=== PATIENT | female | born 1945 | race Caucasian/White ===

== ENCOUNTER → 2018-05-22 14:36 | Outpatient (CLI) | payer MEDICARE, OTHER, SELFPAY ==
[2018-05-22 16:11] LABS: Vitamin D,25 Hydroxy 57.6 ng/mL (29.95-100.01)
[2018-05-22 16:12] LABS: AST(SGOT) 44 U/L (15-37); Alanine Aminotransfer ALT/SGPT 37 U/L (13-56); Alkaline Phosphatase 98 U/L (45-117); Anion Gap 8 (5-15); BUN 16 mg/dL (7-18); BUN/Creat Ratio 19.1 RATIO (10-20); Calcium,Total 8.7 mg/dL (8.5-10.1); Chloride 105 mmol/L (98-107); Cholesterol 122 mg/dL (200); Creatinine, Serum 0.84 mg/dL (0.55-1.02); EST Glomerular Filtration Rate 71 mL/min (>60); Est Glom Filt Rate - Afr Amer 86 mL/min (>60); Globulin 4.2 g/dL (2.2-4.2); Glucose 99 mg/dL (74-106); High Density Lipoprotein 51 mg/dL; Protein, Total 8.2 g/dL (6.4-8.2); Sodium Level 137 mmol/L (136-145); Thyroid Stim Hormone (TSH) 2.26 uIU/mL (0.358-3.74); Triglycerides 103 mg/dL; Very Low Density Lipoprotein 21 mg/dL (5-40)
[2018-05-26 13:21] LABS: Hep C Antibodies <0.1 s/co ratio (0.0-0.9)
== END ==
PROVIDERS: Family Provider Family Medicine; PCP Family Medicine; Visit Provider Family Medicine
DX: E03.9 Hypothyroidism, unspecified (principal); I10 Essential (primary) hypertension; E55.9 Vitamin D deficiency, unspecified
CPT/HCPCS: 36415; 80053; 80061; 82306; 84443; 86803

== ENCOUNTER → 2018-08-02 14:21 | Outpatient (CLI) | payer MEDICARE, OTHER, SELFPAY ==
--- NOTE | 2018-08-02 14:27 | BI_ITS ---
MAMMOGRAPHY - BILATERAL SCREENING REASON FOR EXAM: Female, 73 years old. Routine annual screening examination. PERTINENT HISTORY: Non-contributory. TECHNIQUE: Digital bilateral breast valentin (3D mammographic acquisition) in the CC and MLO projections. 2-D mediolateral oblique (MLO) and craniocaudad (CC) views of both breasts were obtained. CAD: Full Field Digital Mammography with Computer Added Detection was performed. COMPARISON: Comparison is made with prior study dated February 08, 2017 and May 13, 2016. FINDINGS: Breast Composition: The breasts are almost entirely fatty. There are no dominant masses or suspicious calcifications. No other significant abnormalities are identified. There has been no significant change since the prior study. BI/SCREENING MAMM (CAD), BILAT IMPRESSION: Stable bilateral screening mammogram. Yearly follow-up mammogram recommended. (A) ASSESSMENT CATEGORY: BIRADS Category 1: Negative. A letter regarding these results will be sent to the patient by the facility within 30 days. Approximately 10% of breast cancers are not detected by mammography. A normal mammogram should not delay biopsy of a clinically suspicious abnormality. [id number] Electronically Signed: Charan Gomez MD at 8:06 EST Tel [phone], Service support ,
--- NOTE | 2018-08-02 14:29 | BD_ITS ---
STUDY: DUAL ENERGY X-RAY ABSORPTIOMETRY / DXA REASON FOR EXAM: Female, 73 years old. The patient is postmenopausal. Loss of height. TECHNIQUE: Bone Mineral Density (BMD) measurements of lumbar spine and bilateral hips were obtained. COMPARISON: Comparison is made with prior study dated May 12, 2015. FINDINGS: Lumbar Spine (L1-L4): g/cm2 (1.454) / T-score (2.1) / Z-score (3.8) Findings are suggestive of normal bone density with a low fracture risk. Left Femur Total: g/cm2 (0.781) / T-score (-1.8) / Z-score (-0.3) Left Femoral Neck: g/cm2 (0.753) / T-score (-2.1) / Z-score (-0.3) Right Femur Total: g/cm2 (0.790) / T-score (-1.7) / Z-score (-0.2) Right Femoral Neck: g/cm2 (0.755) / T-score (-2.0) / Z-score (-0.3) The T-Scores on the most recent prior examination were: Lumbar Spine (L1-L4): There has been improvement of bone density since the previous examination. Left Femur Total: which represents a worsening of 10%. Right Femur Total: which represents a worsening of 3.2%. BD/Dexa Bone Density Study IMPRESSION: The patient is considered osteopenic as outlined below according to World Tomas Organization (WHO) criteria with a moderate fracture risk. There has been worsening of bone density since the previous examination. Reference Information: The T-score is the number of standard deviations above or below the standard which is normal for young adults at their peak bone mineral density. The World Health Organization (WHO) interprets the T-scores as follows: Above -1 Normal bone density Between -1 and -2.5 Osteopenia Equal to / or below -2.5 Osteoporosis As a practical clinical guideline, osteopenia may be graded as follows: Mild -1 through -1.5 Moderate -1.6 through -2.0 Severe -2.1 through -2.4 The Z-score is the number of standard deviations above or below age-matched controls. A Z-score of less than -1.5 would be considered abnormal. References: 1. NIH Osteoporosis and Related Bone Diseases http://www.osteo.org 2. International Society for Clinical Densitometry http://www.iscd.org 3. National Osteoporosis Foundation http://www.nof.org Electronically Signed: Charan Gomez MD at 13:43 EST Tel [phone], Service support ,
== END ==
PROVIDERS: Family Provider Family Medicine; PCP Family Medicine; Visit Provider Family Medicine
DX: Z12.31 Encounter for screening mammogram for malignant neoplasm of breast (principal); Z78.0 Asymptomatic menopausal state
CPT/HCPCS: 77063; 77067; 77080

== ENCOUNTER → 2018-11-13 | Outpatient (CLI) | payer MEDICARE, OTHER, SELFPAY ==
[2018-11-13 18:12] LABS: AST(SGOT) 20 U/L (15-37); Alanine Aminotransfer ALT/SGPT 18 U/L (13-56); Alkaline Phosphatase 92 U/L (45-117); Bilirubin, Direct 0.14 mg/dL (0.00-0.30); Globulin 3.4 g/dL (2.2-4.2); Protein, Total 7.4 g/dL (6.4-8.2)
[2018-11-15 16:44] LABS: Hep C Antibodies <0.1 s/co ratio (0.0-0.9)
== END | disposition home or self-care (01) ==
LOC: MFPLAB 14:56
PROVIDERS: Family Provider Family Medicine; PCP Family Medicine; Referring Provider Family Medicine; Visit Provider Family Medicine
DX: R94.5 Abnormal results of liver function studies (principal)
CPT/HCPCS: 36415; 80076; 86803

== ENCOUNTER → 2019-05-21 | Outpatient (CLI) | payer MEDICARE, OTHER, SELFPAY ==
[2019-05-21 15:52] LABS: AST(SGOT) 34 U/L (15-37); Alanine Aminotransfer ALT/SGPT 29 U/L (13-56); Albumin, Serum 4.1 g/dL (3.2-5.0); Alkaline Phosphatase 83 U/L (45-117); Anion Gap 7 (5-15); BUN 16 mg/dL (7-18); BUN/Creat Ratio 16.6 RATIO (10-20); Calcium,Total 9.2 mg/dL (8.5-10.1); Chloride 105 mmol/L (98-107); Creatinine, Serum 0.96 mg/dL (0.55-1.02); EST Glomerular Filtration Rate 60 mL/min (>60); Est Glom Filt Rate - Afr Amer 73 mL/min (>60); Glucose 108 mg/dL (74-106); Potassium 4.7 mmol/L (3.5-5.1); Protein, Total 8.1 g/dL (6.4-8.2); Sodium Level 139 mmol/L (136-145); Thyroid Stim Hormone (TSH) 4.21 uIU/mL (0.358-3.74)
[2019-05-21 16:39] LABS: Vitamin D,25 Hydroxy 46.1 ng/mL (29.95-100.01)
== END | disposition home or self-care (01) ==
LOC: MFPLAB 11:42
PROVIDERS: Family Provider Family Medicine; PCP Family Medicine; Referring Provider Family Medicine; Visit Provider Family Medicine
DX: E03.9 Hypothyroidism, unspecified (principal); E55.9 Vitamin D deficiency, unspecified; I10 Essential (primary) hypertension
CPT/HCPCS: 36415; 80053; 82306; 84443

== ENCOUNTER → 2019-08-05 15:13 | Outpatient (CLI) | payer MEDICARE, OTHER, SELFPAY ==
--- NOTE | 2019-08-05 15:16 | BI_ITS ---
MAMMOGRAPHY - BILATERAL SCREENING REASON FOR EXAM: Female, 74 years old. Routine annual screening examination. PERTINENT HISTORY: Non-contributory. TECHNIQUE: Digital bilateral breast елена (3D mammographic acquisition) in the CC and MLO projections. 2-D mediolateral oblique (MLO) and craniocaudad (CC) views of both breasts were obtained. CAD: Full Field Digital Mammography with Computer Added Detection was performed. COMPARISON: Comparison is made with prior study dated August 02, 2018 and February 08, 2017. FINDINGS: Breast Composition: There are scattered areas of fibroglandular density. There are no dominant masses or suspicious calcifications. Asymmetry of breast tissue were more breast tissue is seen in the superior slightly lateral aspect of the left breast. Correlation with ultrasound is recommended. No other significant abnormalities are identified. BI/SCREEN MAMM (CAD) W/ЕЛЕНА BILAT IMPRESSION: Asymmetry of breast tissue in the left breast as described. Correlation with ultrasound is recommended. ASSESSMENT CATEGORY: BIRADS Category 0: Incomplete. Need additional imaging evaluation. A letter regarding these results will be sent to the patient by the facility within 30 days. Approximately 10% of breast cancers are not detected by mammography. A normal mammogram should not delay biopsy of a clinically suspicious abnormality. [id number] Electronically Signed: Charan Gomez, at 8:26 EST , Service support ,
== END ==
PROVIDERS: Family Provider Family Medicine; PCP Family Medicine; Referring Provider Family Medicine; Visit Provider Family Medicine
DX: Z12.31 Encounter for screening mammogram for malignant neoplasm of breast (principal)
CPT/HCPCS: 77063; 77067

== ENCOUNTER → 2019-08-07 09:01 | Outpatient (CLI) | payer MEDICARE, OTHER, SELFPAY ==
--- NOTE | 2019-08-07 09:03 | US_ITS ---
STUDY: ULTRASOUND BREAST - LEFT REASON FOR EXAM: Female, 74 years old. Abnormal screening mammogram. TECHNIQUE: Axial and longitudinal images of the LEFT breast were performed with a high resolution ultrasound transducer. # OF IMAGES: 26 COMPARISON: Comparison is made with prior mammogram dated August 05, 2019. FINDINGS: LEFT Breast: The lateral half of the left breast was examined by ultrasound. There is homogeneous fibroglandular tissue. No sonographic abnormality is seen. US/Breast Limited Unilateral IMPRESSION: No sonographic abnormality is seen. ASSESSMENT CATEGORY: BIRADS Category 1: Negative. A letter regarding these results will be sent to the patient by the facility within 30 days. Electronically Signed: Charan Gomez, at 15:46 EST , Service support ,
== END ==
PROVIDERS: Family Provider Family Medicine; PCP Family Medicine; Referring Provider Family Medicine; Visit Provider Family Medicine
DX: R92.8 Other abnormal and inconclusive findings on diagnostic imaging of breast (principal)
CPT/HCPCS: 76642

== ENCOUNTER → 2019-11-21 16:11 | Outpatient (CLI) | payer MEDICARE, OTHER, SELFPAY ==
[2019-11-21 18:35] LABS: Thyroid Stim Hormone (TSH) 2.76 uIU/mL (0.358-3.74)
== END ==
PROVIDERS: PCP Family Medicine; Referring Provider Family Medicine; Visit Provider Family Medicine
DX: E03.9 Hypothyroidism, unspecified (principal)
CPT/HCPCS: 36415; 84443

== ENCOUNTER → 2020-06-01 14:38 | Outpatient (CLI) | payer MEDICARE, OTHER, SELFPAY ==
[2020-06-01 16:27] LABS: Vitamin D,25 Hydroxy 33.9 ng/mL
[2020-06-01 16:34] LABS: Anion Gap 7 (5-15); BUN 17 mg/dL (7-18); BUN/Creat Ratio 17.3 RATIO (10-20); Calcium,Total 9.6 mg/dL (8.5-10.1); Chloride 102 mmol/L (98-107); Cholesterol 153 mg/dL (200); Creatinine, Serum 0.98 mg/dL (0.55-1.02); EST Glomerular Filtration Rate 59 mL/min (>60); Est Glom Filt Rate - Afr Amer 71 mL/min (>60); Glucose 101 mg/dL (74-106); High Density Lipoprotein 53 mg/dL; Potassium 4.2 mmol/L (3.5-5.1); Sodium Level 138 mmol/L (136-145); Thyroid Stim Hormone (TSH) 1.43 uIU/mL (0.358-3.74); Triglycerides 171 mg/dL; Very Low Density Lipoprotein 34 mg/dL (5-40)
== END ==
PROVIDERS: PCP Family Medicine; Visit Provider Family Medicine
DX: E55.9 Vitamin D deficiency, unspecified (principal); I10 Essential (primary) hypertension; E03.9 Hypothyroidism, unspecified
CPT/HCPCS: 36415; 80048; 80061; 82306; 84443

== ENCOUNTER 2020-10-01 14:31 | Outpatient (RCR) | payer MEDICARE, OTHER, SELFPAY ==
[2020-10-01] MEDS: COVID-19 VACC, MRNA(PFIZER)/PF 30 MCG/0.3 ML SYRINGE IM (12:31)
[2020-10-22] MEDS: COVID-19 VACC, MRNA(PFIZER)/PF 30 MCG/0.3 ML SYRINGE IM (12:26)
== END 2020-10-01 23:59 ==
LOC: IMMUN 14:31
PROVIDERS: PCP Family Medicine; Visit Provider Family Medicine
DX: Z23 Encounter for immunization (principal)
CPT/HCPCS: 0001A; 0002A; 91300

== ENCOUNTER → 2020-11-30 13:49 | Outpatient (CLI) | payer MEDICARE, OTHER, SELFPAY ==
[2020-11-30 15:50] LABS: Anion Gap 5 (5-15); BUN 20 mg/dL (7-18); BUN/Creat Ratio 20.2 RATIO (10-20); Chloride 102 mmol/L (98-107); Creatinine, Serum 0.99 mg/dL (0.55-1.02); EST Glomerular Filtration Rate 58 mL/min (>60); Est Glom Filt Rate - Afr Amer 71 mL/min (>60); Glucose 104 mg/dL (74-106); Potassium 4.3 mmol/L (3.5-5.1); Sodium Level 137 mmol/L (136-145); Thyroid Stim Hormone (TSH) 3.17 uIU/mL (0.358-3.74)
== END ==
PROVIDERS: PCP Family Medicine; Visit Provider Family Medicine
DX: E03.9 Hypothyroidism, unspecified (principal); I10 Essential (primary) hypertension
CPT/HCPCS: 36415; 80048; 84443

== ENCOUNTER → 2020-12-30 12:30 | Outpatient (CLI) | payer MEDICARE, OTHER, SELFPAY ==
--- NOTE | 2020-12-30 12:32 | BI_ITS ---
MAMMOGRAPHY - BILATERAL SCREENING REASON FOR EXAM: Female, 75 years old. Routine annual screening examination. PERTINENT HISTORY: Non-contributory. TECHNIQUE: Digital bilateral breast valentin (3D mammographic acquisition) in the CC and MLO projections. 2-D mediolateral oblique (MLO) and craniocaudad (CC) views of both breasts were obtained. CAD: Full Field Digital Mammography with Computer Added Detection was performed. COMPARISON: Comparison is made with prior study dated 08/05/2019 and 08/02/2018. FINDINGS: Breast Composition: There are scattered areas of fibroglandular density. There are no dominant masses or suspicious calcifications. No other significant abnormalities are identified. There has been no significant change since the prior study. BI/SCREENING MAMM (CAD), BILAT IMPRESSION: Stable bilateral screening mammogram. Yearly follow-up mammogram recommended. (A) ASSESSMENT CATEGORY: BIRADS Category 1: Negative. A letter regarding these results will be sent to the patient by the facility within 30 days. Approximately 10% of breast cancers are not detected by mammography. A normal mammogram should not delay biopsy of a clinically suspicious abnormality. [id number] Electronically Signed: Charan Gomez MD at 13:32 EDT , Service support ,
== END ==
PROVIDERS: PCP Family Medicine; Referring Provider Family Medicine; Visit Provider Family Medicine
DX: Z12.31 Encounter for screening mammogram for malignant neoplasm of breast (principal)
CPT/HCPCS: 77067

== ENCOUNTER → 2021-06-16 14:23 | Outpatient (CLI) | payer MEDICARE, OTHER, SELFPAY ==
[2021-06-16 18:13] LABS: Anion Gap 6 (5-15); BUN 17 mg/dL (7-18); BUN/Creat Ratio 21.1 RATIO (10-20); Calcium,Total 10.1 mg/dL (8.5-10.1); Chloride 106 mmol/L (98-107); Cholesterol 142 mg/dL (200); EST Glomerular Filtration Rate 74 mL/min (>60); Est Glom Filt Rate - Afr Amer 90 mL/min (>60); Glucose 94 mg/dL (74-106); High Density Lipoprotein 50 mg/dL; Sodium Level 138 mmol/L (136-145); Thyroid Stim Hormone (TSH) 5.19 uIU/mL (0.358-3.74); Triglycerides 161 mg/dL; Very Low Density Lipoprotein 32 mg/dL (5-40)
[2021-06-16 18:30] LABS: Vitamin D,25 Hydroxy 66.2 ng/mL
== END ==
PROVIDERS: PCP Family Medicine; Referring Provider Family Medicine; Visit Provider Family Medicine
DX: I10 Essential (primary) hypertension (principal); E03.9 Hypothyroidism, unspecified; M85.89 Other specified disorders of bone density and structure, multiple sites
CPT/HCPCS: 36415; 80048; 80061; 82306; 84443

== ENCOUNTER 2021-09-20 12:15 | Outpatient (CLI) | payer MEDICARE, OTHER, SELFPAY ==
[2021-09-20 15:55] LABS: Thyroid Stim Hormone (TSH) 3.97 uIU/mL (0.358-3.74)
== END 2021-09-20 23:59 | disposition home or self-care (01) ==
LOC: MFPLAB 12:19
PROVIDERS: PCP Family Medicine; Visit Provider Family Medicine
DX: E03.9 Hypothyroidism, unspecified (principal)
CPT/HCPCS: 36415; 84443

== ENCOUNTER → 2021-11-25 | Outpatient (CLI) | payer MEDICARE, OTHER, SELFPAY ==
[2021-11-25 16:04] LABS: T4 Free Direct 1.03 ng/dL (0.76-1.46); Thyroid Stim Hormone (TSH) 0.45 uIU/mL (0.358-3.74)
== END | disposition home or self-care (01) ==
LOC: MFPLAB 11:47
PROVIDERS: PCP Family Medicine; Referring Provider Family Medicine; Visit Provider Family Medicine
DX: E03.9 Hypothyroidism, unspecified (principal)
CPT/HCPCS: 36415; 84439; 84443

== ENCOUNTER → 2022-01-14 | Outpatient (CLI) | payer MEDICARE, OTHER, SELFPAY | END | disposition home or self-care (01) | LOC: LABSPEC 10:29 | PROVIDERS: PCP Family Medicine; Referring Provider Family Medicine; Visit Provider Family Medicine | DX: Z20.822 Contact with and (suspected) exposure to COVID-19 (principal) | CPT/HCPCS: 87635; U0003; U0005 ==

== ENCOUNTER → 2022-02-03 | Outpatient (CLI) | payer MEDICARE, OTHER, SELFPAY ==
--- NOTE | 2022-02-03 10:21 | BI_ITS ---
MAMMOGRAPHY - BILATERAL SCREENING REASON FOR EXAM: Female, 77 years old. Routine annual screening examination. PERTINENT HISTORY: Non-contributory. TECHNIQUE: Digital bilateral breast елена (3D mammographic acquisition) in the CC and MLO projections. 2-D mediolateral oblique (MLO) and craniocaudad (CC) views of both breasts were obtained. CAD: Full Field Digital Mammography with Computer Added Detection was performed. COMPARISON: Comparison is made with prior study dated 12/30/2020 and 08/05/2019. FINDINGS: Breast Composition: There are scattered areas of fibroglandular density. There are no dominant masses or suspicious calcifications. No other significant abnormalities are identified. There has been no significant change since the prior study. BI/SCRN MAMM (CAD)W/ЕЛЕНА BILAT IMPRESSION: Stable bilateral screening mammogram. Yearly follow-up mammogram recommended. (A) ASSESSMENT CATEGORY: BIRADS Category 1: Negative. A letter regarding these results will be sent to the patient by the facility within 30 days. Approximately 10% of breast cancers are not detected by mammography. A normal mammogram should not delay biopsy of a clinically suspicious abnormality. [id number] Electronically Signed: Charan Gomez MD at 11:14 EDT ,
== END | disposition home or self-care (01) ==
LOC: OPBI 10:17
PROVIDERS: PCP Family Medicine; Visit Provider Family Medicine
DX: Z12.31 Encounter for screening mammogram for malignant neoplasm of breast (principal)
CPT/HCPCS: 77063; 77067

== ENCOUNTER → 2022-06-10 | Outpatient (CLI) | payer MEDICARE, OTHER, SELFPAY ==
[2022-06-10 15:39] LABS: Thyroid Stim Hormone (TSH) 0.98 uIU/mL (0.358-3.74)
== END | disposition home or self-care (01) ==
PROVIDERS: PCP Family Medicine; Referring Provider Family Medicine; Visit Provider Nurse Practitioner Family
DX: E03.9 Hypothyroidism, unspecified (principal)
CPT/HCPCS: 36415; 84439; 84443

== ENCOUNTER → 2022-07-07 | Outpatient (CLI) | payer MEDICARE, OTHER, SELFPAY ==
--- NOTE | 2022-07-07 14:35 | BD_ITS ---
STUDY: DUAL ENERGY X-RAY ABSORPTIOMETRY / DXA REASON FOR EXAM: Female, 77 years old. 627.8Menopausal postmenopausalBONE DENSITY REASON FOR EXAM TECHNIQUE: Bone Mineral Density (BMD) measurements of lumbar spine and bilateral hips were obtained. COMPARISON: Comparison is made with prior study dated 08/02/2018. FINDINGS: Lumbar Spine (L1-L4): g/cm2 (0.962) / T-score (-0.5) / Z-score (1.9) Findings are suggestive of normal bone density with a low fracture risk. Left Femur Total: g/cm2 (0.719) / T-score (-1.8) / Z-score (0.0) Left Femoral Neck: g/cm2 (0.675) / T-score (-1.6) / Z-score (0.5) Right Femur Total: g/cm2 (0.706) / T-score (-1.9) / Z-score (-0.1) Right Femoral Neck: g/cm2 (0.666) / T-score (-1.6) / Z-score (0.5) The T-Scores on the most recent prior examination were: Lumbar Spine (L1-L4): There has been improvement of bone density since the previous examination. Left Femur Total: which represents a worsening of 0.5%. Right Femur Total: which represents a worsening of 3.3%. BD/Dexa Bone Density Study IMPRESSION: The patient is considered osteopenic as outlined below according to World Tomas Organization (WHO) criteria with a moderate fracture risk. There has been worsening of bone density since the previous examination. Reference Information: The T-score is the number of standard deviations above or below the standard which is normal for young adults at their peak bone mineral density. The World Health Organization (WHO) interprets the T-scores as follows: Above -1 Normal bone density Between -1 and -2.5 Osteopenia Equal to / or below -2.5 Osteoporosis As a practical clinical guideline, osteopenia may be graded as follows: Mild -1 through -1.5 Moderate -1.6 through -2.0 Severe -2.1 through -2.4 The Z-score is the number of standard deviations above or below age-matched controls. A Z-score of less than -1.5 would be considered abnormal. References: 1. NIH Osteoporosis and Related Bone Diseases www osteo.org 2. International Society for Clinical Densitometry www iscd.org 3. National Osteoporosis Foundation www nof.org Electronically Signed: Charan Gomez MD at 12:51 EST ,
== END | disposition home or self-care (01) ==
LOC: OPBD 14:33
PROVIDERS: PCP Family Medicine; Referring Provider Family Medicine; Visit Provider Family Medicine
DX: M85.80 Other specified disorders of bone density and structure, unspecified site (principal); N95.9 Unspecified menopausal and perimenopausal disorder
CPT/HCPCS: 77080

== ENCOUNTER → 2022-12-12 | Outpatient (CLI) | payer MEDICARE, OTHER, SELFPAY ==
[2022-12-12 13:16] LABS: Vitamin D,25 Hydroxy 81.7 ng/mL
[2022-12-12 13:21] LABS: ALB/GLOB Ratio 1.1 RATIO (0.9-2.4); AST(SGOT) 33 U/L (15-37); Alanine Aminotransfer ALT/SGPT 25 U/L (13-56); Albumin, Serum 4.1 g/dL (3.2-5.0); Alkaline Phosphatase 76 U/L (45-117); Anion Gap 7 (5-15); BUN 20 mg/dL (7-18); Calcium,Total 9.8 mg/dL (8.5-10.1); Chloride 107 mmol/L (98-107); Cholesterol 150 mg/dL (200); EST Glomerular Filtration Rate 74 mL/min (>60); Est Glom Filt Rate - Afr Amer 90 mL/min (>60); Globulin 3.9 g/dL (2.2-4.2); Glucose 104 mg/dL (74-106); High Density Lipoprotein 60 mg/dL; Potassium 3.9 mmol/L (3.5-5.1); Sodium Level 140 mmol/L (136-145); T4 Free Direct 1.24 ng/dL (0.76-1.46); Thyroid Stim Hormone (TSH) 1.13 uIU/mL (0.358-3.74); Triglycerides 111 mg/dL; Very Low Density Lipoprotein 22 mg/dL (5-40)
== END | disposition home or self-care (01) ==
LOC: MFPLAB 11:03
PROVIDERS: PCP Family Medicine; Visit Provider Family Medicine
DX: I10 Essential (primary) hypertension (principal); E03.9 Hypothyroidism, unspecified; E55.9 Vitamin D deficiency, unspecified
CPT/HCPCS: 36415; 80053; 80061; 82306; 84439; 84443

== ENCOUNTER → 2023-03-14 | Outpatient (CLI) | payer MEDICARE, OTHER, SELFPAY ==
--- NOTE | 2023-03-14 08:20 | BI_ITS ---
MAMMOGRAPHY - BILATERAL SCREENING REASON FOR EXAM: Female, 78 years old. Routine annual screening examination. PERTINENT HISTORY: Non-contributory. TECHNIQUE: Digital bilateral breast елена (3D mammographic acquisition) in the CC and MLO projections. 2-D mediolateral oblique (MLO) and craniocaudad (CC) views of both breasts were obtained. CAD: Full Field Digital Mammography with Computer Added Detection was performed. COMPARISON: Comparison is made with prior study dated February 03, 2022 and December 30, 2020. FINDINGS: Breast Composition: There are scattered areas of fibroglandular density. There are no dominant masses or suspicious calcifications. No other significant abnormalities are identified. There has been no significant change since the prior study. BI/SCRN MAMM (CAD)W/ЕЛЕНА BILAT IMPRESSION: Stable bilateral screening mammogram. Yearly follow-up mammogram recommended. (A) ASSESSMENT CATEGORY: BIRADS Category 1: Negative. A letter regarding these results will be sent to the patient by the facility within 30 days. Approximately 10% of breast cancers are not detected by mammography. A normal mammogram should not delay biopsy of a clinically suspicious abnormality. [id number] Electronically Signed: Charan Gomez MD at 10:08 EDT ,
== END | disposition home or self-care (01) ==
LOC: OPBI 08:18
PROVIDERS: PCP Family Medicine; Referring Provider Family Medicine; Visit Provider Family Medicine
DX: Z12.31 Encounter for screening mammogram for malignant neoplasm of breast (principal)
CPT/HCPCS: 77063; 77067

== ENCOUNTER → 2023-12-12 | Outpatient (CLI) | payer MEDICARE, OTHER, SELFPAY ==
[2023-12-12 13:44] LABS: Vitamin D,25 Hydroxy 76.2 ng/mL
[2023-12-12 14:11] LABS: AST(SGOT) 39 U/L (15-37); Alanine Aminotransfer ALT/SGPT 33 U/L (13-56); Alkaline Phosphatase 72 U/L (45-117); Anion Gap 8 (5-15); BUN 18 mg/dL (7-18); Calcium,Total 9.8 mg/dL (8.5-10.1); Chloride 106 mmol/L (98-107); Creatinine, Serum 0.78 mg/dL (0.55-1.02); EST Glomerular Filtration Rate 76 mL/min (>60); Est Glom Filt Rate - Afr Amer 92 mL/min (>60); Glucose 107 mg/dL (74-106); Potassium 4.2 mmol/L (3.5-5.1); Sodium Level 140 mmol/L (136-145); Thyroid Stim Hormone (TSH) 0.22 uIU/mL (0.358-3.74)
== END | disposition home or self-care (01) ==
LOC: MFPLAB 11:18
PROVIDERS: PCP Family Medicine; Visit Provider Family Medicine
DX: E55.9 Vitamin D deficiency, unspecified (principal); E03.9 Hypothyroidism, unspecified; F32.A Depression, unspecified
CPT/HCPCS: 36415; 80053; 82306; 84439; 84443

== ENCOUNTER → 2024-03-15 | Outpatient (CLI) | payer MEDICARE, OTHER, SELFPAY ==
--- NOTE | 2024-03-15 09:55 | BI_ITS ---
MAMMOGRAPHY - BILATERAL SCREENING REASON FOR EXAM: Female, 79 years old. Routine annual screening examination. PERTINENT HISTORY: Non-contributory. TECHNIQUE: Digital bilateral breast елена (3D mammographic acquisition) in the CC and MLO projections. 2-D mediolateral oblique (MLO) and craniocaudad (CC) views of both breasts were obtained. CAD: Full Field Digital Mammography with Computer Added Detection was performed. COMPARISON: Comparison is made with prior study March 14, 2023 and February 03, 2022. FINDINGS: Breast Composition: There are scattered areas of fibroglandular density. There are no dominant masses or suspicious calcifications. No other significant abnormalities are identified. There has been no significant change since the prior study. BI/SCRN MAMM (CAD)W/ЕЛЕНА BILAT IMPRESSION: Stable bilateral screening mammogram. Yearly follow-up mammogram recommended. (A) ASSESSMENT CATEGORY: BIRADS Category 1: Negative. A letter regarding these results will be sent to the patient by the facility within 30 days. Approximately 10% of breast cancers are not detected by mammography. A normal mammogram should not delay biopsy of a clinically suspicious abnormality. [id number] Electronically Signed: Charan Gomez MD at 12:02 EDT ,
== END | disposition home or self-care (01) ==
LOC: OPBI 09:54
PROVIDERS: PCP Family Medicine; Referring Provider Family Medicine; Visit Provider Family Medicine
DX: Z12.31 Encounter for screening mammogram for malignant neoplasm of breast (principal)
CPT/HCPCS: 77063; 77067

== ENCOUNTER → 2024-06-25 | Outpatient (CLI) | payer MEDICARE, OTHER, SELFPAY ==
[2024-06-25 18:35] LABS: Anion Gap 6 (5-15); BUN 9 mg/dL (7-18); BUN/Creat Ratio 11.1 RATIO (10-20); Calcium,Total 9.4 mg/dL (8.5-10.1); Chloride 106 mmol/L (98-107); Cholesterol 109 mg/dL (200); Creatinine, Serum 0.81 mg/dL (0.55-1.02); EST Glomerular Filtration Rate 73 mL/min (>60); Est Glom Filt Rate - Afr Amer 88 mL/min (>60); Glucose 117 mg/dL (74-106); High Density Lipoprotein 46 mg/dL; Potassium 3.9 mmol/L (3.5-5.1); Sodium Level 138 mmol/L (136-145); T4 Free Direct 1.42 ng/dL (0.76-1.46); Triglycerides 91 mg/dL; Very Low Density Lipoprotein 18 mg/dL (5-40)
[2024-06-25 18:37] LABS: Vitamin D,25 Hydroxy 83.6 ng/mL
== END | disposition home or self-care (01) ==
PROVIDERS: PCP Family Medicine; Visit Provider Family Medicine
DX: E03.9 Hypothyroidism, unspecified (principal); I10 Essential (primary) hypertension; E55.9 Vitamin D deficiency, unspecified
CPT/HCPCS: 36415; 80048; 80061; 82306; 84439; 84443

== ENCOUNTER → 2024-08-08 | Outpatient (CLI) | payer MEDICARE, OTHER, SELFPAY ==
--- NOTE | 2024-08-08 11:02 | BD_ITS ---
STUDY: DUAL ENERGY X-RAY ABSORPTIOMETRY / DXA REASON FOR EXAM: Female, 79 years old. 627.8Menopausal postmenopausal BONE DENSITY REASON FOR EXAM TECHNIQUE: Bone Mineral Density (BMD) measurements of lumbar spine and bilateral hips were obtained. COMPARISON: Comparison is made with prior study July 07, 2022. FINDINGS: Lumbar Spine (L1-L4): g/cm2 (0.872) / T-score (-1.0) / Z-score (1.4) Findings are suggestive of normal bone density with a low fracture risk. Left Femur Total: g/cm2 (0.729) / T-score (-1.7) / Z-score (0.2) Left Femoral Neck: g/cm2 (0.664) / T-score (-1.7) / Z-score (0.5) Right Femur Total: g/cm2 (0.686) / T-score (-2.1) / Z-score (-0.2) Right Femoral Neck: g/cm2 (0.625) / T-score (-2.0) / Z-score (0.2) The T-Scores on the most recent prior examination were: Lumbar Spine (L1-L4): There has been worsening of bone density since the previous examination. Left Femur Total: which represents an improvement of 1.5%. Right Femur Total: which represents a worsening of 2.9%. BD/Dexa Bone Density Study IMPRESSION: The patient is considered osteopenic as outlined below according to World Tomas Organization (WHO) criteria with a high fracture risk. There has been worsening of bone density since the previous examination. Reference Information: The T-score is the number of standard deviations above or below the standard which is normal for young adults at their peak bone mineral density. The World Health Organization (WHO) interprets the T-scores as follows: Above -1 Normal bone density Between -1 and -2.5 Osteopenia Equal to / or below -2.5 Osteoporosis As a practical clinical guideline, osteopenia may be graded as follows: Mild -1 through -1.5 Moderate -1.6 through -2.0 Severe -2.1 through -2.4 The Z-score is the number of standard deviations above or below age-matched controls. A Z-score of less than -1.5 would be considered abnormal. References: 1. NIH Osteoporosis and Related Bone Diseases www osteo.org 2. International Society for Clinical Densitometry www iscd.org 3. National Osteoporosis Foundation www nof.org Electronically Signed: Charan Gomez MD at 9:34 EST ,
== END | disposition home or self-care (01) ==
LOC: OPBD 11:01
PROVIDERS: PCP Family Medicine; Referring Provider Family Medicine; Visit Provider Family Medicine
DX: Z00.00 Encounter for general adult medical examination without abnormal findings (principal); Z78.0 Asymptomatic menopausal state
CPT/HCPCS: 77080

== ENCOUNTER → 2025-03-17 | Outpatient (CLI) | payer MEDICARE, OTHER, SELFPAY ==
--- NOTE | 2025-03-17 11:56 | BI_ITS ---
EXAM: SCRN MAMM (CAD)W/ЕЛЕНА BILAT DATE: 03/17/2025 CLINICAL HISTORY: F, Age 80 y/o , ANNUAL TECHNIQUE: SCRN MAMM (CAD)W/ЕЛЕНА BILAT COMPARISON: Prior exam(s) were compared FINDINGS: TISSUE DENSITY: There are scattered areas of fibroglandular density. Bilateral Breast Mammographic Findings: No suspicious masses, calcifications or other abnormalities are identified. BI/SCRN MAMM (CAD)W/ЕЛЕНА BILAT IMPRESSION: No mammographic evidence of malignancy in either breast OVERALL FINAL ASSESSMENT BI-RADS 1: NEGATIVE. RECOMMENDATION: Routine annual follow-up in 1 Year A letter with findings and recommendations will be mailed to the patient. Reading Location: [id number]
== END | disposition home or self-care (01) ==
LOC: OPBI 11:55
PROVIDERS: PCP Family Medicine; Referring Provider Family Medicine; Visit Provider Family Medicine
DX: Z12.31 Encounter for screening mammogram for malignant neoplasm of breast (principal)
CPT/HCPCS: 77063; 77067

== ENCOUNTER 2025-07-09 12:24 | Outpatient (CLI) | payer MEDICARE, OTHER, SELFPAY ==
--- OUTSIDE RECORDS SUMMARY | 2025-07-09 12:42 | XMS RPT_ITS | CCD ---
Author Organization [facility] Care Team Providers Care Coil Taper Name Role Phone Leslie Proctor Primary Care Provider [phone] Joseph MENDIETA, Dr. Laughlin Primary Care Provider Joseph MENDIETA, Dr. Laughlin Attending Provider Joseph MENDIETA, Dr. Laughlin Referring Provider Truman Ruiz Primary Care Unavailable Truman Ruiz Referring Unavailable Truman Ruiz Attending Unavailable Truman Ruiz Primary Care Unavailable Truman Ruiz Referring Unavailable Truman Ruiz Attending Unavailable Truman Ruiz Primary Care Unavailable Truman Ruiz Attending Unavailable Problems Problem Classification Problem Date Documented Da te Episodic/Chronic Other screening for suspected conditions (not mental disorders or infectious disease) (1 source) Encounter for screening mammogram for malignant neoplasm of breast; Translations: [Encounter for screening mammogram for malignant neoplasm of breast] Onset: 03-19-2025 Episodic Thyroid disorders (1 source) Hypothyroidism, unspecified; Translations: [Hypothyroidism, unspecified] Onset: 07-25-2024 Chronic Results Test Name Value Interpretation Reference Range Facility Breast imaging reportOrdered By: Kayley Myers on 03-17-2025 Study report [facility] Imaging Services [address] [place] [id number] SCRN MAMM (CAD)W/ЕЛЕНА BILAT MR#: [id number] Acct: [id number] Name: SHORTY HOLLIS Rep #: [id number] : 1945 F 80 From: Rigoberto Rothman MD PCP: Dr. Truman Ruiz MD Status: REG CLI Study:SCRN MAMM (CAD)W/ЕЛЕНА BILAT Date of Exa m: 03/17/25 Exam# [id number] Ordering Dr: Damian Ruiz MD EXAM: SCRN MAMM (CAD)W/ЕЛЕНА BILAT DATE: 03/17/2025 CLINICAL HISTORY: F, Age 80 y/o , ANNUAL TECHNIQUE: SCRN MAMM (CAD)W/ЕЛЕНА BILAT COMPARISON: Prior exam(s) were compared FINDINGS: TISSUE DENSITY: There are scattered areas of fibroglandular density. Bilateral Breast Mammographic Findings: No suspicious masses, calcifications or other abnormalities are identified. BI/SCRN MAMM (CAD)W/ЕЛЕНА BILAT IMPRESSION: No mammographic evidence of malignancy in either breast OVERALL FINAL ASSESSMENT BI-RADS 1: NEGATIVE. RECOMMENDATION: Routine annual follow-up in 1 Year A letter with findings and recommendations will be mailed to the patient. Reading Location: [id number] CC: Dr. Truman Ruiz MD ~ Systems Test Analyst: Signed [facility] SCRN MAMM (CAD)W/ЕЛЕНА BILATo n 03-17-2025 SCRN MAMM (CAD)W/ЕЛЕНА BILAT [facility] Imaging Services [address] [place], [place] [address] SCRN MAMM (CAD)W/ЕЛЕНА BILAT MR#: [id number] Acct: [id number] Name: SHORTY HOLLIS Rep #: [id number] : 1945 F 80 From: Kayley Veliz i, MD PCP: Dr. Truman uRiz MD Status: REG CLI Study: SCRN MAMM (CAD)W/ЕЛЕНА BILAT Date of Exam: 02/28 03/24 Exam# [id number] Ordering Dr: Truman Ruiz EXAM: SCRN MAMM (CAD)W/ЕЛЕНА BILAT DATE: 03/17/2025 CLINICAL HISTORY: F, Age 80 y/o , ANNUAL TECHNIQUE: SCRN MAMM (CAD)W/ЕЛЕНА BILAT COMPARISON: Prior exam(s) were compared FINDINGS: TISSUE DENSITY: There are scattered areas of fibroglandular density. Bilateral Breast Mammographic Findings: No suspicious masses, calcifications or other abnormalities are identified. BI/SCRN MAMM (CAD)W/ЕЛЕНА BILAT IMPRESSION: No mammographic evidence of malignancy in either breast OVERALL FINAL ASSESSMENT BI-RADS 1: NEGATIVE. RECOMMENDATION: Routine annual follow-up in 1 Year A letter with findings and recommendations will be mailed to the patient. Reading Location: [id number] CC: Dr. Truman Ruiz MD Systems Test Analyst: Signed Normal [facility] Dexa Bone Density Studyon Dexa Bone Density Study [facility] Imaging Services [address] [place] [address] [id number] Dexa Bone Density Study MR#: [id number] Acct: [id number] Name: SHORTY HOLLIS Rep #: [id number] : 1945 F 79 From: Charan mills MD PCP: Dr. Truman Ruiz MD Status: [facility] Study: Dexa Bone Density Study Date of Exam: 08/08/24 Exam# [id number] Ordering Dr: Truman Ruiz [id number] STUDY: DUAL ENERGY X-RAY ABSORPTIOMETRY / DXA REASON FOR EXAM: Female, 79 years old. 627.8Menopausal postmenopausal BONE DENSITY REASON FOR EXAM TECHNIQUE: Bone Mineral Density (BMD) measurements of lumbar spine and bilateral hips were obtained. COMPARISON: Comparison is made with prior study July 07, 2022. FINDINGS: Lumbar Spine (L1-L4): g/cm2 (0.872) / T-score (-1.0) / Z-score (1.4) Findings are suggestive of normal bone density with a low fracture risk. Left Femur Total: g/cm2 (0.729) / T-score (-1.7) / Z-score (0.2) Left Femoral Neck: g/cm2 (0.664) / T-score (-1.7) / Z-score (0.5) Right Femur Total: g/cm2 (0.686) / T-score (-2.1) / Z-score (-0.2) Right Femoral Neck: g/cm2 (0.625) / T-score (-2.0) / Z-score (0.2) The T-Scores on the most recent prior examination were: Lumbar Spine (L1-L4): There has been worsening of bone density since the previous examination. Left Femur Total: which represents an improvement of 1.5%. Right Femur Total: which represents a worsening of 2.9%. BD/Dexa Bone Density Study IMPRESSION: The patient is considered osteopenic as outlined below according to World Tomas Organization (WHO) criteria with a high fracture risk. There has been worsening of bone density since the previous examination. Reference Information: The T-score is the number of standard deviations above or below the standard which is normal for young adults at their peak bone mineral density. The World Health Organization (WHO) interprets the T-scores as follows: Above -1 Normal bone density Between -1 and -2.5 Osteopenia Equal to / or below -2.5 Osteoporosis As a practical clinical guideline, osteopenia may be graded as follows: Mild -1 through -1.5 Moderate -1.6 through -2.0 Severe -2.1 through -2.4 The Z-score is the number of standard deviations above or below age-matched controls. A Z-score of less than -1.5 would be considered abnormal. References: 1. NIH Osteoporosis and Related Bone Diseases www osteo.org 2. International Society for Clinical Densitometry www iscd.org 3. National Osteoporosis Foundation www nof.org Electronically Signed: Charan Gomez MD at 9:34 EST , CC: Dr. Truman Ruiz MD Systems Test Analyst: Signed Normal [facility] Basic Metabolic Profile (BMP )on 06-25-2024 BUN/CRE 11.1 RATIO Normal 10-20 [facility] Comment on above: Order Comment: Order Date: 02/13/24 Order Info: 0667- - BMP Order Info: [id number] - LIPID Order Info: [id number] - TSH Order Info: 3024-7 - T4F Performed By: #### L 506.1000, L500.2500, L500.4100, L501.9520, L506.0400 #### [facility] Laboratory [address] [place], [address] CA,Total 9.4 mg/dL Normal 8.5-10.1 [facility] Comment on above: Order Comment: Order Date: 02/13/24 Order Info: 666-07 - BMP Order Info: [id number] - LIPID Order Info: [id number] - TSH Order Info: 3024-7 - T4F Performed By: #### L 506.1000, L500.2500, L500.4100, L501.9520, L506.0400 #### [facility] Laboratory [address] [place], [address] Chloride [Moles/Vol] 106 mmol/L Normal 98-107 [facility] Comment on above: Order Comment: Order Date: 02/13/24 Order Info: 06- - BMP Order Info: [id number] - LIPID Order Info: [id number] - TSH Order Info: 3024-7 - T4F Performed By: #### L 506.1000, L500.2500, L500.4100, L501.9520, L506.0400 #### [facility] Laboratory [address] [place], [address] CO2 [Moles/Vol] 25.0 mmol/L Normal 21.0-32.0 [facility] Comment on above: Order Comment: Order Date: 02/13/24 Order Info: 666-07 - BMP Order Info: - LIPID Order Info: 3 - TSH Order Info: 3024-01 - T4F Performed By: #### L 506.1000, L500.2500, L500.4100, L501.9520, L506.0400 #### [facility] Laboratory [address] [place], [address] Creatinine [Mass/Vol] 0.81 mg/dL Normal 0.55-1.02 [facility] Comment on above: Order Comment: Order Date: 02/13/24 Order Info: 666-07 - BMP Order Info: - LIPID Order Info: 3015-09 - TSH Order Info: 3024-01 - T4F Result Comment: The validity of the calculated GFR GFRAA in patients over 70 years has not been determined. Clinical correlation is essential. Performed By: #### L 506.1000, L500.2500, L500.4100, L501.9520, L506.0400 #### [facility] Laboratory [address] [place], [address] EST GFR - AA 88 mL/min Normal >60 [facility] Comment on above: Order Comment: Order Date: 02/13/24 Order Info: 666-07 - BMP Order Info: - LIPID Order Info: 3015-09 - TSH Order Info: 7 - T4F Result Comment: Afri can [place] GFR Calc Performed By: #### L 506.1000, L500.2500, L500.4100, L501.9520, L506.0400 #### [facility] Laboratory [address] [place], [address] GAP 6 Normal 5-15 [facility] Comment on above: Order Comment: Order Date: 02/13/24 Order Info: 666-07 - BMP Order Info: - LIPID Order Info: 3 - TSH Order Info: 7 - T4F Performed By: #### L 506.1000, L500.2500, L500.4100, L501.9520, L506.0400 #### [facility] Laboratory [address] [place], [address] GFR/1.73 sq M.predicted among non-blacks MDRD (S/P/Bld) [Vol rate/Area] 73 mL/min/{1.73_m2} Normal >60 [facility] Comment on above: Order Comment: Order Date: 02/13/24 Order Info: 666-07 - BMP Order Info: 27456-1 - LIPID Order Info: 3015-3 - TSH Order Info: 302-7 - T4F Result Comment: Non- GFR Calc Performed By: #### L 506.1000, L500.2500, L500.4100, L501.9520, L506.0400 #### [facility] Laboratory [address] [place], [address] Glucose [Mass/Vol] 117 mg/dL High 74-106 [facility] Comment on above: Order Comment: Order Date: 02/13/24 Order Info: 666-07 - BMP Order Info: - LIPID Order Info: 3 - TSH Order Info: 7 - T4F Result Comment: Fast ing Glucose result from 100 to 125 mg/dL suggests IMPAIRED HOMEOSTASIS per A.D.A. criteria. Performed By: #### L 506.1000, L500.2500, L500.4100, L501.9520, L506.0400 #### [facility] Laboratory [address] [place], [address] Potassium [Moles/Vol] 3.9 mmol/L Normal 3.5-5.1 [facility] Comment on above: Order Comment: Order Date: 02/13/24 Order Info: 666-07 - BMP Order Info: [id number] - LIPID Order Info: 3013 - TSH Order Info: 3027 - T4F Performed By: #### L 506.1000, L500.2500, L500.4100, L501.9520, L506.0400 #### [facility] Laboratory [address] [place], [address] Sodium [Moles/Vol] 138 mmol/L Normal 136-145 [facility] Comment on above: Order Comment: Order Date: 02/13/24 Order Info: 666-07 - BMP Order Info: 20591-4 - LIPID Order Info: 3015-3 - TSH Order Info: 3023-7 - T4F Performed By: #### L 506.1000, L500.2500, L500.4100, L501.9520, L506.0400 #### [facility] Laboratory [address] [place], [address] Urea nitrogen [Mass/Vol] 9 mg/dL Normal 7-18 [facility] Comment on above: Order Comment: Order Date: 02/13/24 Order Info: 666-07 - BMP Order Info: - LIPID Order Info: 3 - TSH Order Info: 7 - T4F Performed By: #### L 506.1000, L500.2500, L500.4100, L501.9520, L506.0400 #### [facility] Laboratory [address] [place], [address] Lipid Profileon 06-25-2024 Cholesterol [Mass/Vol] 109 mg/dL Normal 200 [facility] Comment on above: Order Comment: Order Date: 02/13/24 Order Info: 666-07 - BMP Order Info: 02390-9 - LIPID Order Info: 3 - TSH Order Info: 3024-7 - T4F Result Comment: <200 mg/dL Desirable 200-240 mg/dL Borderline >240 mg/dL High Risk Performed By: #### L 506.1000, L500.2500, L500.4100, L501.9520, L506.0400 #### [facility] Laboratory [address] [place], [address] Cholesterol in HDL [Mass/Vol] 46 mg/dL Normal [facility] Comment on above: Order Comment: Order Date: 02/13/24 Order Info: 666-07 - BMP Order Info: [id number] - LIPID Order Info: 3015-09 - TSH Order Info: 3024-01 - T4F Result Comment: The drugs N-Acetylcysteine and Metamizole may falsely depress this assay. Reference Range HDL <40 mg/dL Low HDL Cholesterol HDL >or= 60 mg/dL High HDL Cholesterol Performed By: #### L 506.1000, L500.2500, L500.4100, L501.9520, L506.0400 #### [facility] Laboratory [address] [place], [address] Cholesterol in LDL [Mass/Vol] 45 mg/dL Normal 0-130 [facility] Comment on above: Order Comment: Order Date: 02/13/24 Order Info: 666-07 - BMP Order Info: 47207-5 - LIPID Order Info: 3015-09 - TSH Order Info: 3024-01 - T4F Performed By: #### L 506.1000, L500.2500, L500.4100, L501.9520, L506.0400 #### [facility] Laboratory [address] [place], [address] Cholesterol in VLDL [Mass/Vol] 18 mg/dL Normal 5-40 [facility] Comment on above: Order Comment: Order Date: 02/13/24 Order Info: 666-07 - BMP Order Info: [id number] - LIPID Order Info: 3015-09 - TSH Order Info: 3024-01 - T4F Performed By: #### L 506.1000, L500.2500, L500.4100, L501.9520, L506.0400 #### [facility] Laboratory [address] [place], [address] Triglyceride [Mass/Vol] 91 mg/dL Normal [facility] Comment on above: Order Comment: Order Date: 02/13/24 Order Info: 06 - BMP Order Info: [id number] - LIPID Order Info: 3 - TSH Order Info: 7 - T4F Result Comment: The drugs N-Acetylcysteine and Metamizole may falsely depress this assay. Serum Triglycerides Reference Interval Normal <150 mg/dL Borderline high 150 - 199 mg/dL High 200 - 499 mg/dL Very High > or = 500 mg/dL Performed By: #### L 506.1000, L500.2500, L500.4100, L501.9520, L506.0400 #### [facility] Laboratory [address] [place], [address] T4 Free Directon 06-25-2024 T4 FREE DIRECT 1.42 ng/dL Normal 0.76-1.46 [facility] Comment on above: Order Comment: Order Date: 02/13/24 Order Info: 0667-1 - BMP Order Info: 22181-1 - LIPID Order Info: 3015-3 - TSH Order Info: 7 - T4F Performed By: #### L 506.1000, L500.2500, L500.4100, L501.9520, L506.0400 #### [facility] Laboratory [address] [place], [address] Thyroid Stim Hormone (TSH)on 06-25-2024 TSH 0.240 uIU/mL Low 0.358-3.740 [facility] Comment on above: Order Comment: Order Date: 02/13/24 Order Info: 0667-1 - BMP Order Info: 10741-7 - LIPID Order Info: 6-3 - TSH Order Info: 3024-7 - T4F Performed By: #### L 506.1000, L500.2500, L500.4100, L501.9520, L506.0400 #### [facility] Laboratory [address] [place], [address] Vitamin D,25 Hydroxyon 06-25 Vitamin D 25-OH 83.6 ng/mL Normal [facility] Comment on above: Order Comment: Order Date: 02/13/24 Order Info: [id number] - VITD25 Result Comment: Kaylie min D 25(OH) Status Range Deficiency <20 ng/mL (50nmol/L) Insufficiency 20 - 30 ng/mL (50 - 75 nmol/L) Sufficiency 30 - 100 ng/mL (75 - 250 nmol/L) Toxicity >100 ng/mL (>250 nmol/L) Performed By: #### L 506.1000, L500.2500, L500.4100, L501.9520, L506.0400 #### [facility] Laboratory [address] [place], [address] Basophil percentageOrdered B y: Philip Ruiz on 12-12-2022 Bilirubin [Mass/Vol] 0.60 mg/dL 0.20-1.00 [facility] Comment on above: For patients on eltr ombopag therapy, use of Dimension Burton TBIL is not recommended. Chloride [Moles/Vol] 107 mmol/L 98-107 [facility] Cholesterol [Mass/Vol] 150 mg/dL <200 [facility] Comment on above: <200 mg/dL Desirable 200-240 mg/dL Borderline >240 mg/dL High Risk Glucose [Mass/Vol] 104 mg/dL 74-106 [facility] Comment on above: Fasting Glucose resu lt from 100 to 125 mg/dL suggests IMPAIRED HOMEOSTASIS per A.D.A. criteria. Potassium [Moles/Vol] 3.9 mmol/L 3.5-5.1 [facility] Protein [Mass/Vol] 8.0 g/dL 6.4-8.2 [facility] Sodium [Moles/Vol] 140 mmol/L 136-145 [facility] Triglyceride [Mass/Vol] 111 mg/dL <199 [facility] Comment on above: The drugs N-Acetylcy steine and Metamizole may falsely depress this assay.Serum Triglycerides Reference Interval Normal <150 mg/dL Borderline high 150 - 199 mg/dL High 200 - 499 mg/dL Very High > or = 500 mg/dL Laboratory - Chemistry and C hemistry - challengeOrdered By: Philip Ruiz on 12-12-2022 ALP [Catalytic activity/Vol] 76 U/L 45-117 [facility] ALT [Catalytic activity/Vol] 25 U/L 13-56 [facility] CO2 [Moles/Vol] 26.0 mmol/L 21.0-32.0 [facility] Free T4 [Mass/Vol] 1.24 ng/dL 0.76-1.46 [facility] Globulin (S) [Mass/Vol] 3.9 g/dL 2.2-4.[address] [facility] Urea nitrogen/Creatinine [Mass ratio] 25.0 mg/mg 10-20 [facility] No Panel InformationOrdered By: Philip Ruiz on 12-12-2022 Estimated GFR (MDRD) Amer 90 mL/min >60 [facility] Comment on above: GFR Calc Estimated GFR (MDRD) Non-Af Amer 74 mL/min >60 [facility] Comment on above: Non- GFR Calc Thyroid Stimulating Hormone (TSH) 1.13 uIU/mL 0.358-3.74 [facility] Vitamin D 25-Hydroxy 81.7 ng/mL [facility] Comment on above: Vitamin D 25(OH) Sta tus Range Deficiency <20 ng/mL (50nmol/L) Insufficiency 20 - 30 ng/mL (50 - 75 nmol/L) Sufficiency 30 - 100 ng/mL (75 - 250 nmol/L) Toxicity >100 ng/mL (>250 nmol/L) Serum or plasma albumin evans urement (mass/volume)Ordered By: Philip Ruiz on 12-12-2022 Albumin [Mass/Vol] 4.1 g/dL 3.2-5.0 [facility] Serum or plasma albumin/glob ulin mass ratioOrdered By: Philip Ruiz on 12-12-2022 Albumin/Globulin [Mass ratio] 1.1 {ratio} 0.9-2.4 [facility] Serum or plasma calcium evans urement (mass/volume)Ordered By: Philip Ruiz on 12-12-2022 Calcium [Mass/Vol] 9.8 mg/dL 8.5-10.1 [facility] Serum or plasma cholesterol in HDL measurement (mass/volume)Ordered By: Philip Ruiz on 12-12-2022 Cholesterol in HDL [Mass/Vol] 60 mg/dL >40 [facility] Comment on above: The drugs N-Acetylcy steine and Metamizole may falsely depress this assay. Reference Range HDL <40 mg/dL Low HDL Cholesterol HDL >or= 60 mg/dL High HDL Cholesterol Serum or plasma cholesterol in VLDL measurement (mass/volume)Ordered By: Philip Ruiz on 12-12-2022 Cholesterol in VLDL [Mass/Vol] 22 mg/dL 5-40 [facility] Serum or plasma creatinine m easurement (mass/volume)Ordered By: Philip Ruiz on 12-12-2022 Creatinine [Mass/Vol] 0.80 mg/dL 0.55-1.02 [facility] Comment on above: The validity of the calculated GFR & GFRAA in patients over 70 years has not been determined. Clinical correlation is essential. Serum or plasma low density lipoprotein (LDL) cholesterol measurement (mass/volume)Ordered By: Philip Ruiz on 12-12-2022 Cholesterol in LDL [Mass/Vol] 68 mg/dL 0-130 [facility] Serum or plasma urea nitroge n measurement (mass/volume)Ordered By: Philip Ruiz on 12-12-2022 Urea nitrogen [Mass/Vol] 20 mg/dL 7-18 [facility] Thin prep Papanicolaou smear with manual screeningOrdered By: Philip Ruiz on 12-12-2022 Thin prep Papanicolaou smear with manual screening 33 U/L 15-37 [facility] Thin prep Papanicolaou smear with manual screening 7 - [facility] Laboratory - Chemistry and C hemistry - challengeon 06-10-2022 Free T4 [Mass/Vol] 1.00 ng/dL 0.76-1.46 [facility] Work Phone: No Panel Informationon 06-10 Thyroid Stimulating Hormone (TSH) 0.98 uIU/mL 0.358-3.74 [facility] Work Phone: Laboratory - Microbiology an d Antimicrobial susceptibilityon 01-14-2022 SARS-CoV-2 (COVID-19) RNA GALI+probe Ql (Unsp spec) Not detected Not Detect [facility] Work Phone: Comment on above: Normal Reference Ran ge: Not DetectedMethod:(RT-PCR) real-time reverse transcriptase PCRLuminex MAR Instrument*The Food and Drug Administration (FDA) has issued an Emergency Use Authorization (EAU) for the MAR SARS-CoV-2 Assay for the rapid detection of the virus that causes COVID-19. This test has been validated, but the [facility] independent review of this validation is pending.*Negative results do not preclude infection and should not be used as the sole basis for treatment or patient management. Optimum specimen types and timing for peak viral levels during infections caused by SARS-CoV-2 have not been determined. Collection of multiple specimens from the same patient may be necessary to detect the virus. The possibility of a false negative result should be considered if the patient has clinical presentation or has had recent exposure. Laboratory - Chemistry and C hemistry - challengeon 11-25-2021 Free T4 [Mass/Vol] 1.03 ng/dL 0.76-1.46 [facility] Work Phone: No Panel Informationon 11-25 Thyroid Stimulating Hormone (TSH) 0.45 uIU/mL 0.358-3.74 [facility] Work Phone: No Panel Informationon 09-20 Thyroid Stimulating Hormone (TSH) 3.97 uIU/mL 0.358-3.74 [facility] Work Phone: Otheron 11-01-1999 CONVERTED ELECTRONIC SIGNATURE JERRY DE JESUS M.D., PATHOLOGIST (Electronic signature on file) Final Signed Out: 11/01/1999 13:19 [facility] CONVERTED FINAL DIAGNOSIS PARATHYROID, LEFT INFERIOR, EXCISION - MARKEDLY ENLARGED PARATHYROID GLAND CONSISTENT WITH PARATHYROID ADENOMA. COMMENT - The markedly enlarged parathyroid gland shows a small amount of normal parathyroid gland in the capsule and hence the histologic picture is consistent with parathyroid adenoma. [facility] CONVERTED ORDERING PROVIDER Ordering Provider: YUE MUNGUIA [facility] Encounters Encounter Date Encounter Type Care Provider Facility Start: 03-17-2025 End: 03-17-[address] Truman Ruiz MD Work Phone: -Outpatient Breast Imaging Start: 03-17-2025 End: 03-17-[address] Truman Ruiz MD -Outpatient Breast Imaging Work Phone: Start: 03-17-2025 End: 03-17-2025 ambulatory Truman Ruiz Facility:[facility] Start: 08-29-2024 Encounter for genera l adult medical examination without abnormal findings Truman Ruiz [facility] Start: 08-08-2024 End: 08-08-[facility] Start: 06-25-2024 End: 06-25-2024 ambulatory [place] Nathanaeljayshree Facility:[facility] Start: 03-14-2023 End: 03-14-2023 ambulatory [facility] Work Phone: Start: 03-14-2023 End: 03-14-2023 Patient encounter procedure [facility]-Outpatient Breast Imaging Work Phone: Start: 12-12-2022 End: 12-12-2022 [facility] Start: 07-07-2022 End: 07-07-2022 ambulatory [facility] Work Phone: Start: 07-07-2022 End: 07-07-2022 Patient encounter procedure [facility]-Outpatient Bone Densitometry Start: 06-10-2022 End: 06-10-2022 ambulatory [facility] Work Phone: Start: 06-10-2022 End: 06-10-2022 [facility] Start: 02-03-2022 End: 02-03-2022 Patient encounter procedure [facility] Start: 01-14-2022 End: 01-14-2022 Patient encounter procedure [facility], Specimen Start: 11-25-2021 End: 11-25-2021 [facility] Start: 09-20-2021 End: 09-20-2021 [facility] Start: 10-29-1999 End: 10-29-1999 Patient encounter procedure Yue Munguia Work Phone: [facility] Start: 10-29-1999 Results Only Yue Munguia Work Phone: [facility] Procedures Date Procedure Procedure Detail Performing Clinician Start: 03-17-2025 Screening mammography Inderjit Ruiz MD Work Phone: Start: 03-14-2023 Screening mammography Start: 07-07-2022 Dual energy X-ray absorptiometry Start: 02-03-2022 Screening mammography Start: 10-29-1999 CONVERTED SURGICAL PATHOLOGY Yue Truman Munguia Work Phone: Plan of Treatment Date Care Activity Detail Author Start: 03-31-2020 Influenza vaccination INFLUENZA (#1) [facility] Start: 01-10-2012 ADVANCE DIRECTIVE DISCUSSION ADVANCE DIRECTIVE DISCUSSION [facility] Start: 01-10-2012 BONE DENSITY BONE DENSITY [facility] Start: 01-10-2012 PNEUMOVAX AGE 65 AND OVER WITH 5YR LOOKBACK (#1) PNEUMOVAX AGE 65 AND OVER WITH 5YR LOOKBACK (#1) [facility] Start: 1997 SHINGRIX VACCINE (1 of 2) HUMMEL GRIX VACCINE (1 of 2) [facility] Start: 1997 Tuberculosis screening COLOREC FREDI CANCER SCREENING,SEE MODIFIER [facility] Start: 01-10-1992 DIABETES SCREEN DIABETES SCREEN [facility] Start: 01-10-1992 LIPID SCREEN LIPID SCREEN [facility] Start: 1987 Mammography MAMMOGRAM [facility] Start: 1966 Urine microalbumin profile DTAP,TDAP ,TD (1 - Tdap) [facility] Start: 1965 HEPATITIS C SCREENING HEPATITIS C [facility] Immunizations Immunization Date Immunization Notes Care Provider Kolby munoz 10-22-2020 Covid (Pfizer) [facility] 10-01-2020 Covid (Pfizer) [facility] Payers Date Payer Category Payer Private Health Insurance CLI [id number] 2024 Self-pay [id number] 2021 Medicare [id number] Private Health Insurance [id number] Unknown MMO [employer] PLUS [id number] Through 2019 O [id number] Unknown [id number] Unknown [id number] Unknown [id number] Social History Date Type Detail Facility [facility] Sex Assigned At Not on file [facility] Start: 1945 Sex Assigned At Female [facility] Tobacco smoking stat [facility] Unknown if ever smoked [facility] Work Phone: Evaluation note Note Date & Type Note Facility Evaluation note No assessment information availa ble [facility] Work Phone: Reason for referral (narrative) Note Date & Type Note Facility Reason for referral (narrative) No reason for referral information available [facility] Work Phone: Chief Complaint and Reason for Visit Chief Complaint SCREENING Chief Complaint OSTEO Chief Complaint Admit Date SCREENING March 17, 2025 11 :54am Summary Purpose Family History No Family History Records Found Advance Directives No Advanced Directives Records Found Additional Source Comments Source Comments (unrecognize d section and content) In the event this informatio n is protected by the Federal Confidentiality of Alcohol and Drug Abuse Patient Records regulations: The Federal rules restrict any use of the information to criminally investigate or prosecute any alcohol or drug abuse patient.[facility] Goals (unrecognized section and content) Goals may be documented in a n alternate sectionGoals may be documented in an alternate sectionGoals may be documented in an alternate sectionGoals may be documented in an alternate sectionGoals may be documented in an alternate sectionGoals may be documented in an alternate sectionGoals may be documented in an alternate section Care Teams (unrecognized sec tion and content) Team Status: Active Member Role Status Dates Dr. Philip Ruiz MD Family Provider Active Dr. Philip Ruiz MD Primary Care Provider Activ e Team Status: Inactive Member Role Status Dates Dr. Philip Ruiz MD Primary Care Provider, Atte nding Provider Active Team Status: Inactive Member Role Status Dates Dr. Philip Ruiz MD Primary Care Provider, Attending Provider, Referring Provider Active Team Status: Active Member Role/Relationship Status Dates Dr. Truman Ruiz MD Primary Care Provider Acti ve Team Status: Inactive Member Role/Relationship Status Dates Dr. Truman Ruiz MD Primary Care Provider Acti ve Start: March 17, 2025 End: March 17, 2025 Dr. Truman Ruiz MD Attending Provider Active Start: March 17, 2025 End: March 17, 2025 Dr. Truman Ruiz MD Referring Provider Active Start: March 17, 2025 End: March 17, 2025 INFORMATION SOURCE (unrecogn ized section and content) DATE CREATED AUTHOR 03/21/2025 [facility] FOR RECORDS PERTAINING TO PATIENTS WHO ARE OR HAVE BEEN ENROLLED IN A CHEMICAL DEPENDENCY/SUBSTANCEABUSE PROGRAM, SOME INFORMATION MAY BE OMITTED. This clinical summary was aggregated from multiple sources. Caution should be exercised in using it in the provision of clinical care. This summary normalizes information from multiple sources, and as a consequence, information in this document may materially change the coding, format and clinical context of patient data. In addition, data may be omitted in some cases. CLINICAL DECISIONS SHOULD BE BASED ON THE PRIMARY CLINICAL RECORDS. [employer] provides no warranty or guarantee of the accuracy or completeness of information in this document.
[2025-07-09 16:04] LABS: Anion Gap 13 (5-15); BUN 17 mg/dL (4-19); BUN/Creat Ratio 21.7 RATIO (10-20); Calcium,Total 10.3 mg/dL (7.6-11.0); Carbon Dioxide 26.1 mmol/L (21.0-32.0); Chloride 101 mmol/L (98-108); Glucose 113 mg/dL (70-99); Potassium 4.7 mmol/L (3.3-5.1); Vitamin D,25 Hydroxy 67.2 ng/mL (30-100)
[2025-07-09 16:34] LABS: Cholesterol 150 mg/dL (<=200); Low Density Lipoprotein Calc. 79 mg/dL; Triglycerides 163 mg/dL; Very Low Density Lipoprotein 33 mg/dL (5-40); cholesterol:hdl ratio screen 3.46
== END 2025-07-09 23:59 | disposition home or self-care (01) ==
LOC: MFPLAB 12:24
PROVIDERS: PCP Family Medicine; Visit Provider Family Medicine
DX: E03.9 Hypothyroidism, unspecified (principal); I10 Essential (primary) hypertension; E55.9 Vitamin D deficiency, unspecified
CPT/HCPCS: 36415; 80048; 80061; 82306; 84439; 84443